=== PATIENT | female | born 1980 ===

== ENCOUNTER 2017-04-03 14:00 | Emergency (ER) | payer OTHER ==
[2017-04-03 14:11] VITALS: RESP 17
--- NOTE | 2017-04-03 15:00 | ED PDOC ---
Arrival/HPI - General Historian: Patient - History of Present Illness Time/Duration: Other (2 days) Symptom Onset: Sudden Symptom Course: Unchanged - General Chief Complaint: Cough, Cold, Congestion Time Seen by Provider: 04/03/17 14:59 - History of Present Illness Narrative History of Present Illness (Text): 04/03/17 15:00 A 37 year old female presents to the emergency department complaining of 2 days history of ear and body aches and runny nose. Patient also reports a fever which developed on an airplane after coming home from a week vacation to [facility]. Patient notes urinary frequency and urgency. Patient denies any abdominal pain, flank pain, nausea, vomiting, skin rashes, leg swelling, chest pain, shortness of breath or any other complaints at this time. (Denisse Dexter) Modifying Factors (Text): none (Denisse Dexter) Past Medical History - Provider Review Nursing Documentation Reviewed: Yes - Travel History If Yes, travel location?: [facility] - Cardiac Hx Cardiac Disorders: No - Pulmonary Hx Respiratory Disorders: No - Neurological Hx Neurological Disorder: No - HEENT Hx HEENT Disorder: No - Renal Hx Renal Disorder: No - Endocrine/Metabolic Hx Endocrine Disorders: No - Hematological/Oncological Hx Blood Disorders: No - Integumentary Other/Comment: SHINGLES - Musculoskeletal/Rheumatological Hx Musculoskeletal Disorders: No - Gastrointestinal Hx Gall Bladder Disease: Yes - Psychiatric Hx Psychophysiologic Disorder: No Hx Substance Use: No - Surgical History Hx Cholecystectomy: Yes Family/Social History - Physician Review Nursing Documentation Reviewed: Yes Family/Social History: No Known Family HX Smoking Status: Never Smoked Hx Alcohol Use: Yes Frequency of alcohol use: Socially Hx Substance Use: No Allergies/Home Meds Allergies/Adverse Reactions: Allergies gluten Allergy (Verified 04/03/17 14:04) NAUSEA Review of Systems - Physician Review All systems were reviewed & negative as marked: Yes - Review of Systems Constitutional: Fevers Respiratory: absent: SOB Cardiovascular: absent: Chest Pain Gastrointestinal: absent: Abdominal Pain, Nausea, Vomiting Genitourinary Female: Frequency, Other (urinary urgency) Musculoskeletal: absent: Other (flank pain; leg swelling) Skin: absent: Rash Physical Exam Vital Signs Reviewed: Yes Temperature: Febrile Blood Pressure: Normal Pulse: Tachycardic Respiratory Rate: Normal Appearance: Positive for: Well-Appearing, Non-Toxic, Comfortable Pain Distress: None Mental Status: Positive for: Alert and Oriented X 3 - Systems Exam Head: Present: Atraumatic, Normocephalic Pupils: Present: PERRL Extroacular Muscles: Present: EOMI Conjunctiva: Present: Normal Mouth: Present: Moist Mucous Membranes Nose (Internal): Present: Other (runny nose) Neck: Present: Normal Range of Motion Respiratory/Chest: Present: Clear to Auscultation, Good Air Exchange. No: Respiratory Distress, Accessory Muscle Use Cardiovascular: Present: Regular Rate and Rhythm, Normal S1, S2. No: Murmurs Abdomen: Present: Tenderness (mild suprapubic tenderness), Normal Bowel Sounds. No: Distention, Peritoneal Signs Back: Present: Normal Inspection Upper Extremity: Present: Normal Inspection. No: Cyanosis, Edema Lower Extremity: Present: Normal Inspection. No: Edema Neurological: Present: GCS=15, CN II-XII Intact, Speech Normal Skin: Present: Warm, Dry, Normal Color. No: Rashes Psychiatric: Present: Alert, Oriented x 3, Normal Insight, Normal Concentration Vital Signs Temp Pulse Resp BP Pulse Ox 04/03/17 17:47 99.4 F 97 H 17 116/72 97 04/03/17 16:11 101.8 F H 04/03/17 14:04 101.8 F H 101 H 17 114/76 98 Medical Decision Making Re-evaluation Time: 16:54 Reassessment Condition: Re-examined, Improved - Lab Interpretations I have reviewed the lab results: Yes Interpretation: No clinic. lab abnormalty ED Course and Treatment: 04/03/17 16:19 Impression: A 37 year old female with nasal congestion, fever, ear and bodyaches. Differential Diagnosis included but are not limited to: URI symptoms vs. malaria vs. other virus syndrome vs. UTI Plan: -- chest xray -- labs -- Urinalysis -- Tylenol -- Reassess and disposition Progress Notes: 04/03/17 16:59 Chest xray: Creator : Jose Espino MD FINDINGS: LUNGS: No active pulmonary disease. PLEURA: No significant pleural effusion identified. No pneumothorax apparent. CARDIOVASCULAR: Normal. OSSEOUS STRUCTURES: Minor multilevel degenerative spondylosis of the thoracic spine. VISUALIZED UPPER ABDOMEN: Normal. IMPRESSION: No active disease. 04/03/17 16:54 Re-evaluation. Patient feels better. Discussed results and plan with patient who expresses understanding. All questions answered and there is agreement with the plan to discharge home with instructions. Patient stable for discharge. Return if symptoms persist or worsen. (Denisse Dexter) - Lab Interpretations Microbiology Results: Microbiology Results 04/03/17 16:00 Urine Urine Culture - Final Escherichia Coli Lab Results: Lab Results 04/03/17 16:19: Malaria Source See note, Malaria/Babesia Smear Pending 04/03/17 16:00: Urine Color Yellow, Urine Appearance Clear, Urine pH 7.0, Ur Specific Ker[place] 1.010, Urine Protein Negative, Urine Glucose (UA) Negative, Urine Ketones Negative, Urine Blood Moderate H, Urine Nitrate Negative, Urine Bilirubin Negative, Urine Urobilinogen 0.2, Ur Leukocyte Esterase Negative, Urine RBC 5 - 10, Urine WBC 0 - 2, Ur Epithelial Cells 1 - 3, Urine Bacteria Few 04/03/17 15:55: Influenza Typ A,B (EIA) Negative for flu a/b - RAD Interpretation Radiology Orders: 04/03/17 15:00 CHEST TWO VIEWS (PA/LAT) [RAD] Stat - Medication Orders Current Medication Orders: Discontinued Medications Acetaminophen (Tylenol 325mg Tab) 975 mg PO STAT STA Stop: 04/03/17 15:02 Last Admin: 04/03/17 16:11 Dose: 975 mg MAR Pain/Vitals Document 04/03/17 16:11 MR (Rec: 04/03/17 16:11 MR [id number]) Vitals Temperature (97.6 F-99.6 F) 101.8 F Temperature Source Oral Doxycycline Hyclate (Doryx) 100 mg PO STAT STA PRN Reason: Protocol Stop: 04/03/17 17:11 Last Admin: 04/03/17 17:22 Dose: 100 mg Oseltamivir Phosphate (Tamiflu Cap) 75 mg PO STAT STA PRN Reason: Protocol Stop: 04/03/17 16:51 Last Admin: 04/03/17 17:03 Dose: 75 mg - Scribe Statement The provider has reviewed the documentation as recorded by the Scribe - Scribe Statement Ana Baig Provider Scribe Attestation: All medical record entries made by the Scribe were at my direction and personally dictated by me. I have reviewed the chart and agree that the record accurately reflects my personal performance of the history, physical exam, medical decision making, and the department course for this patient. I have also personally directed, reviewed, and agree with the discharge instructions and disposition. (Denisse Dexter) Disposition/Present on Arrival - Present on Arrival Any Indicators Present on Arrival: No History of DVT/PE: No History of Uncontrolled Diabetes: No Urinary Catheter: No History of Decub. Ulcer: No History Surgical Site Infection Following: None - Disposition Have Diagnosis and Disposition been Completed?: Yes Disposition Time: 16:54 Patient Plan: Discharge - Disposition Diagnosis: Influenza-like symptoms Disposition: HOME/ ROUTINE Condition: GOOD Discharge Instructions (ExitCare): Influenza (ED) Additional Instructions: Call private doctor for follow up visit in 1-2 days. Review urine culture, and malaria test in 3-5 days. take medication with food,a and drink enough fluids and soup. Return to emergency if symptoms worsen. Prescriptions: Doxycycline Monohydrate 100 mg PO BID #20 tablet Ibuprofen [Motrin] 600 mg PO Q8 PRN #20 tab PRN Reason: Pain, Severe (8-10) Oseltamivir [Tamiflu] 75 mg PO BID #9 cap Promethazine/Codeine [Codeine/Promethazine 10 MG/5 Ml-6.25 MG/5 Ml] 5 ml PO Q4H PRN #120 ml PRN Reason: Cough Referrals: Jaquan Delcid DO [Primary Care Provider] - Follow up with primary Forms: [employer] ([place]amanian) Addendum Addendum: 04/05/17 15:24 Pt was DC home with Doxycycline. Called pt to change abx to Macrobid. Left a phone message. (Sonia Martines A)
[2017-04-03 16:12] LABS: URINE BILIRUBIN NEGATIVE (NEGATIVE); URINE BLOOD MODERATE (NEGATIVE); URINE GLUCOSE (UA) NEGATIVE (NEGATIVE); URINE KETONE NEGATIVE (NEGATIVE); URINE LEUKOCYTE ESTERASE NEGATIVE Leu/uL (NEGATIVE); URINE PROTEIN NEGATIVE mg/dL (<30 mg/dL); URINE UROBILINOGEN 0.2 E.U./dL (<1 E.U./dL)
[2017-04-03 16:13] LABS: URINE APPEARANCE CLEAR (CLEAR); URINE COLOR YELLOW (YELLOW)
[2017-04-03 16:17] LABS: URINE BACTERIA FEW (NEG); URINE WBC 0 - 2 /hpf (0-6)
--- NOTE | 2017-04-03 16:56 | RAD ---
HISTORY: cough COMPARISON: No prior. TECHNIQUE: Chest PA and lateral FINDINGS: LUNGS: No active pulmonary disease. PLEURA: No significant pleural effusion identified. No pneumothorax apparent. CARDIOVASCULAR: Normal. OSSEOUS STRUCTURES: Minor multilevel degenerative spondylosis of the thoracic spine. VISUALIZED UPPER ABDOMEN: Normal. OTHER FINDINGS: None. IMPRESSION: No active disease.
[2017-04-03 17:48] VITALS: BP 116/72; PULSE 97; TEMP 99.4; O2SAT 97
[2017-04-07 14:06] LABS: MALARIA BLOOD Negative
== END 2017-04-03 17:48 | disposition home or self-care (01) ==
LOC: ED 14:00
DX: J11.1 Influenza due to unidentified influenza virus with other respiratory manifestations (principal)